=== PATIENT | male | born 1955 | race Caucasian/White ===

== ENCOUNTER 2016-11-12 07:12 | Inpatient (IN) | payer BC ==
[~2016-11-12] VITALS: Ht 180.3 cm; Wt 144.3 kg
[2016-11-12] MEDS ORDERED: IV NORMAL SALINE 1000ML BAG 1,000 ML IV SCH (07:31)
[2016-11-12] MEDS ORDERED: 0.9 % SODIUM CHLORIDE 10 ML DISP.SYRIN. IV PRN (07:45)
[2016-11-12] MEDS ORDERED: ASPIRIN CHEWABLE 81 MG TABLET. PO ONE (07:45)
--- NOTE | 2016-11-12 07:45 | PHYS DOC ---
Past Medical History Past Medical History: CAD, Diabetes-Type II, High Cholesterol, Hypertension, NC Past Surgical History: Other Additional Past Surgical Histo: CARDIAC STENT Smoking: Cigarettes, Cigar (on occasion), Quit Greater Than 1 Year Alcohol Use: None Drug Use: None Adult General Chief Complaint Chief Complaint: VISION PROBLEM HPI HPI This is a pleasant 61-year-old male with a history of hypertension, diabetes and prior heart disease with a heart attack back is age 42 return home from [place] after vacation for a week with his family. He went to bed in his normal state of health when he woke up this morning he distinctly had problems with visual field loss in the left hemisphere of his left eye only. He describes some floating changing shades that he can see in his eye with possibly scintillating scatomata. There is minimal pain he does have a slight headache around that I needed the jain. He denies any trauma to the eye denies any pain within the eye itself. There is no pain with extraocular movement or facial rash. Patient denies any recent weakness in his upper or lower extremities problems problems with hearing or memory. He's never had symptoms like this in the past. He used to wear contact lenses when he was younger but has grown out of the need and use of contact lenses. This patient denies photophobia, or problems with nausea and vomiting. homonymous hemianopia, temporal arteritis, retinal detachment, posterior vitreal detachment, vasculitis, central artery occlusion, central vein occlusion , glaucoma, Review of Systems Review of Systems Constitutional: Denies fever or chills [] Eyes: Patient only has change in visual acuity without redness or eye pain. HENT: Denies nasal congestion or sore throat [] Respiratory: Denies cough or shortness of breath [] Cardiovascular: No additional information not addressed in HPI [] GI: Denies abdominal pain, nausea, vomiting, bloody stools or diarrhea [] : Denies dysuria or hematuria [] Musculoskeletal: Denies back pain or joint pain [] Integument: Denies rash or skin lesions [] Neurologic: Denies headache, focal weakness or sensory changes [] Endocrine: Denies polyuria or polydipsia [] Current Medications Current Medications Current Medications Medications (Trade) Dose Ordered Sig/Wojciech Start Time Stop Time Status Last Admin Dose Admin Acetazolamide (Diamox) 500 mg 1X ONCE 11/12/16 10:30 11/12/16 10:31 DC Aspirin (Children'S Aspirin) 324 mg 1X ONCE 11/12/16 07:45 11/12/16 07:46 DC Fluorescein Sodium (Ful-[place]) 1 strip 1X ONCE 11/12/16 08:15 11/12/16 08:16 DC 11/12/16 08:22 1 STRIP Sodium Chloride (Normal Saline Flush) 10 ml QSHIFT PRN 11/12/16 07:45 11/12/16 08:23 10 ML Tetracaine HCl (Tetracaine) 1 drop 1X ONCE 11/12/16 08:15 11/12/16 08:16 DC 11/12/16 08:22 1 DROP Timolol Maleate (Timoptic 0.5% Oph) 1 drop BID 11/12/16 21:00 UNV Allergies Allergies Allergies Coded Allergies Type Severity Reaction Last Updated Verified No Known Drug Allergies 11/12/16 No Physical Exam Physical Exam Vital signs noted to be hypertensive. Constitutional: Well developed, well nourished, no acute distress, non-toxic appearance. [] HENT: Normocephalic, atraumatic, bilateral external ears normal, oropharynx moist, no oral exudates, nose normal. [] Eyes: Patient extraocular motions are intact bilaterally with no weakness. Patient has no facial rash, no Carbone sign, no facial anesthesia. Patient has consensual pupillary restriction when looking at the right eye. He does have pupillary dilation when the eye is allowed to be in the low light. He does have some activity but decreased in the left pupil. Patient on visual field confrontation has hemianopsia noted just on the left jain. The retina seems pale with mild nicking of the blood vessels. There is no obvious photophobia or injection to the limbic region of the conjunctiva. Patient's anterior chambers deep and quiet. He has no noted foreign bodies or extra watering from the eye itself. Neck: Normal range of motion, no tenderness, supple, no stridor. [] Cardiovascular:Heart rate regular rhythm, no murmur [] Lungs & Thorax: Bilateral breath sounds clear to auscultation [] Skin: Warm, dry, no erythema, no rash. [] Extremities: No tenderness, no cyanosis, no clubbing, ROM intact, no edema. [] Neurologic: Alert and oriented X 3, normal motor function, normal sensory function, no focal deficits noted. [] Psychologic: Affect normal, judgement normal, mood normal. [] Current Patient Data Vital Signs Vital Signs Date Time Temp Pulse Resp B/P (MAP) Pulse Ox O2 Delivery O2 Flow Rate FiO2 11/12/16 07:16 97.9 58 18 162/79 (106) 98 Room Air 97.9 Lab Values Laboratory Tests Test 11/12/16 07:35 White Blood Count 6.1 x10^3/uL (4.0-11.0) Red Blood Count 4.81 x10^6/uL (4.30-5.70) Hemoglobin 15.2 g/dL (13.0-17.5) Hematocrit 43.0 % (39.0-53.0) Mean Corpuscular Volume 89 fL (79-100) Mean Corpuscular Hemoglobin 32 pg (25-35) Mean Corpuscular Hemoglobin Concent 35 g/dL (31-37) Red Cell Distribution Width 15.0 % (11.5-14.5) H Platelet Count 132 x10^3/uL (140-400) L Neutrophils (%) (Auto) 56 % (31-73) Lymphocytes (%) (Auto) 31 % (24-48) Monocytes (%) (Auto) 9 % (0-9) Eosinophils (%) (Auto) 4 % (0-3) H Basophils (%) (Auto) 1 % (0-3) Neutrophils # (Auto) 3.4 x10^3uL (1.8-7.7) Lymphocytes # (Auto) 1.9 x10^3/uL (1.0-4.8) Monocytes # (Auto) 0.5 x10^3/uL (0.0-1.1) Eosinophils # (Auto) 0.2 x10^3/uL (0.0-0.7) Basophils # (Auto) 0.0 x10^3/uL (0.0-0.2) Erythrocyte Sedimentation Rate 22 (0-15) H Sodium Level 141 mmol/L (136-145) Potassium Level 4.3 mmol/L (3.5-5.1) Chloride Level 104 mmol/L (98-107) Carbon Dioxide Level 31 mmol/L (21-32) Anion Gap 6 (6-14) Blood Urea Nitrogen 19 mg/dL (8-26) Creatinine 1.0 mg/dL (0.7-1.3) Estimated GFR (Cockcroft-Gault) 76.2 Glucose Level 107 mg/dL (70-99) H Calcium Level 9.1 mg/dL (8.5-10.1) Total Bilirubin 0.4 mg/dL (0.2-1.0) Direct Bilirubin 0.1 mg/dL (0.0-0.2) Aspartate Amino Transferase (AST) 27 U/L (15-37) Alanine Aminotransferase (ALT) 28 U/L (16-63) Alkaline Phosphatase 87 U/L (46-116) C-Reactive Protein, Quantitative 7.4 mg/L (0-3.3) H Total Protein 7.3 g/dL (6.4-8.2) Albumin 3.5 g/dL (3.4-5.0) Laboratory Tests 11/12/16 07:35 Laboratory Tests 11/12/16 07:35 EKG EKG [] Radiology/Procedures Radiology/Procedures [] IMAGING REPORT Signed PATIENT: JUAN PITTMAN ACCOUNT: [id number] : 1955 LOCATION: ER AGE: 61 SEX: M EXAM STATUS: REG ER ORD. PHYSICIAN: JESUS RUVALCABA MD REASON: vision loss PROCEDURE: CT HEAD WO CONTRAST One or more of the following individualized dose reduction techniques were utilized for this examination: 1. Automated exposure control 2. Adjustment of the mA and/or kV according to patient size 3. Use of iterative reconstruction technique CT brain without contrast. History: Vision loss left eye this morning. CT scan of brain was done without contrast. There is no intracranial hemorrhage or subdural hematoma. Ventricles are normal in size. There is no mass effect or shift of the midline. There is a small rounded low density or cystic focus along the tentorium on the left is nonspecific. MRI could be of benefit for further evaluation. Sinuses are clear. Impression: 1. Small low-density focus along the tentorium nonspecific finding. 2. No intracranial hemorrhage or acute CVA noted. DICTATED and SIGNED BY: DAISY PERDUE MD DATE: 11/12/1635 CC: JESUS RUVALCABA MD; SAAD CUMMINS MD ~ Course & Med Decision Making Course & Med Decision Making Pertinent Labs and Imaging studies reviewed. (See chart for details) Hospitality Recruiter note: Ophthalmology services Hospitality Recruiter called at of the service was initially paged at 7:50 AM Consult called back at 8:06 AM Discussed the case I presented and they agreed with evaluation and need for emergent ophthalmology evaluation. He did agree that is possibly ischemic neuritis retinal detachment. I did tell him that I would set up is with the machine examination for him as well as a Hayden-Pen. My Hayden-Pen evaluation demonstrated an internal pressure between 14 and 18. Patient's foreign seen exam demonstrated no Oly's, no dendrites no evidence of foreign body rink sign or ulcer. At this point I discussed the treatment options and plan for ophthalmology evaluation here in the emergency department about 9:30 AM with the family. Time is now 820. Patient is still resting comfortably with no change in visual acuities. Time is now 9:15 patient's laboratory work as been reviewed by me. His CRP and ESR are mildly elevated. He does not have an elevated white blood cell count. Patient has a mild hyperglycemia with a rate of 132. His CT is also been reviewed by me and the reading is been done by radiology. I have shared this information with the family and the patient at the bedside. The patient's symptoms remain unchanged. Ophthalmology is at the bedside approximate 9:35 AM. After dilation and discussion at approximately 10:10 AM it was discovered that patient has a central artery or retinal occlusion. The symptoms began when he awoke about 6 AM this morning although could've occurred anytime the last 12 hours. Patient may benefit from ocular massage, ocular trephination of the orbit to reduce pressure. Patient will also have an echocardiogram completed, continued rule out giant cell arteritis, and EKG, and carotid Dopplers. He'll be admitted to the hospital to an inpatient service seen under the care of internal medicine physician and ophthalmology. Hospitality Recruiter note: Internal medicine services Hospitality Recruiter called at of the service consult the service at 10:15 AM Consult called back at 10:30 Discussed the case I presented and they agreed with admission. Time of acceptance 10:30 Impression: Central artery or retinal occlusion. Ocular stroke. Disposition. Admission to the hospital for continued evaluation for a systolic disease process. He will carotid ultrasound done, MRI of the head and neck, and echocardiogram. Ophthalmology has seen the patient agrees with treatment of atenolol to reduce pressure in the eye as well as Acetazolimide to reduce intraocular pressure even more through osmotic processes. I spent approximately 45-50 minutes working and engaged directly in the patient care providing critical care evaluation this includes but not limited to time spent engaged in work directly related to the individual patients care. I spent time at the bedside, reviewing test results, discussing the case with staff, documenting the medical record and time spent with EMS discussing specific treatment issues when the patient presented and during his evaluation. [] Dragon Disclaimer Dragon Disclaimer This electronic medical record was generated, in whole or in part, using a voice recognition dictation system. Departure Departure Impression: Primary Impression: Central retinal artery occlusion of left eye Disposition: ADMITTED INPATIENT Admitting Physician: Maya Concepcion Condition: GUARDED JESUS RUVALCABA MD Nov 12, 2016 07:45
[2016-11-12 07:55] LABS: CALCIUM 9.1 mg/dL (8.5-10.1); GFR 76.2; POTASSIUM 4.3 mmol/L (3.5-5.1)
[2016-11-12 08:01] LABS: ALBUMIN 3.5 g/dL (3.4-5.0); DIRECT BILIRUBIN 0.1 mg/dL (0.0-0.2); TOTAL BILIRUBIN 0.4 mg/dL (0.2-1.0); TOTAL PROTEIN 7.3 g/dL (6.4-8.2)
[2016-11-12 08:02] LABS: BASO % 1 % (0-3); EOS % 4 % (0-3); HEMOGLOBIN 15.2 g/dL (13.0-17.5); LYMPH # 1.9 x10^3/uL (1.0-4.8); LYMPH % 31 % (24-48); MEAN CORPUSCULAR HEMOGLOBIN 32 pg (25-35); MEAN CORPUSCULAR HGB CONC 35 g/dL (31-37); MEAN CORPUSCULAR VOLUME 89 fL (79-100); MONO % 9 % (0-9); NEUT % 56 % (31-73); PLATELET COUNT 132 x10^3/uL (140-400); RED BLOOD COUNT 4.81 x10^6/uL (4.30-5.70); WHITE BLOOD COUNT 6.1 x10^3/uL (4.0-11.0)
[2016-11-12 08:10] LABS: C-REACTIVE PROTEIN 7.4 mg/L (0-3.3)
[2016-11-12] MEDS ORDERED: TETRACAINE 0.5% OPHTH SOLUTION 4ML BOTTLE. OS ONE (08:15)
[2016-11-12] MEDS ORDERED: FLUORESCEIN OPHTH TEST STRIP. OS ONE (08:15)
--- NOTE | 2016-11-12 08:40 | RAD ---
One or more of the following individualized dose reduction techniques were utilized for this examination: 1. Automated exposure control 2. Adjustment of the mA and/or kV according to patient size 3. Use of iterative reconstruction technique CT brain without contrast. History: Vision loss left eye this morning. CT scan of brain was done without contrast. There is no intracranial hemorrhage or subdural hematoma. Ventricles are normal in size. There is no mass effect or shift of the midline. There is a small rounded low density or cystic focus along the tentorium on the left is nonspecific. MRI could be of benefit for further evaluation. Sinuses are clear. Impression: 1. Small low-density focus along the tentorium nonspecific finding. 2. No intracranial hemorrhage or acute CVA noted.
[2016-11-12] MEDS ORDERED: ONDANSETRON PF 4 MG/2 ML VIAL. IV PRN ×2 (10:45→12:20)
--- NOTE | 2016-11-12 11:09 | EKG ---
[facility] [address] [place] [address] Test Date: 2016-11-12 Test Time: 10:31:46 Pat Name: JUAN PITTMAN Department: Room: Gender: M [employer]: : 1955 Requested By: JESUS RUVALCABA Order Number: [id number] Reading MD: Measurements Intervals [place] Rate: 56 P: 45 CO: 242 QRS: -21 QRSD: 84 T: 9 QT: 388 QTc: 377 Interpretive Statements SINUS RHYTHM PROLONGED CO INTERVAL LEFTWARD AXIS RI6.01 Unconfirmed report No previous ECG available for comparison
[2016-11-12 11:10] VITALS: BP 138/65
[2016-11-12] MEDS: IV NORMAL SALINE 1000ML BAG 1,000 ML IV SCH ×2 (11:59→21:40)
[2016-11-12] MEDS ORDERED: GLIP10TA13 PO (12:09)
[2016-11-12] MEDS ORDERED: PIOG1TAB24 PO (12:09)
[2016-11-12] MEDS ORDERED: HYDR25TA9 PO (12:09)
[2016-11-12] MEDS ORDERED: INSU100C4 SQ (12:09)
[2016-11-12] MEDS ORDERED: METO50TA2 PO (12:09)
[2016-11-12] MEDS ORDERED: CRESTOR10 MG PO (12:09)
[2016-11-12] MEDS ORDERED: INSU100I27 SQ (12:09)
[2016-11-12] MEDS ORDERED: ASPI325T8 PO (12:09)
[2016-11-12] MEDS ORDERED: RAMI10CA PO (12:09)
[2016-11-12] MEDS ORDERED: OMEG1CAP6 PO (12:09)
[2016-11-12] MEDS ORDERED: cloNIDine HCL 0.1 MG TABLET PO PRN (12:30)
[2016-11-12] MEDS ORDERED: DEXTROSE 50% 25 GM / 50ML DISP.SYRIN. IV PRN (12:30)
[2016-11-12] MEDS: METOPROLOL TART IMMED RELEASE 50 MG TABLET. PO SCH ×2 (13:00→21:39)
[2016-11-12] MEDS: hydroCHLOROthiazide 25 MG TABLET PO SCH (13:00)
[2016-11-12] MEDS: OMEGA-3 FATTY ACIDS/FISH OIL 1,000 MG CAPSULE. PO SCH (13:00)
[2016-11-12] MEDS: ASPIRIN 325 MG TABLET PO SCH (13:19)
[2016-11-12 15:00] VITALS: BP 126/66
--- NOTE | 2016-11-12 15:06 | PDOC1 ---
History and Physical Date of Admission Date of Admission DATE: 11/12/16 TIME: 14:57 Identification/Chief Complaint Chief Complaint acute blurry vision, blindness of left eye Problems: Source Source: Caregiver, Chart review, Patient History of Present Illness History of Present Illness 61 y.o obese male, hx HTN DM 2 on high doses insulin and CAD with indwelling stent, woke up today with acute signif BOV, almost complete loss of vision of left eye, NEver happened before. Some mild headache, no emesis, no dizziness, Went to ER, evaluated by opthalmology stat, got timolol eye drops and diamox to dec Intra ocular pressure, dx witH CRAO, Admitted bec of further work up, to r.o cardio embolic source/cause of the retinal stroke. Pt sitting comfortably, BP and BS very good, no FNDs, NEuro exam Completely normal asks about an MRI I did explain this is a retinal stroke, no role of mRI but cardio embolic work up including carotid US and echo is the standard of care NOt unless new FNDs arrise, no MRI ESR mildy elevated at 22m, CRP 74 but no signs of temporal arteritis that can be seen sometimes with CRAO. GOt ASA 325 at ER, on ASA 325 at home. NO eye pain PE: R eye entirelyu normal LEft eye, cannot see hand wave test, not see finger counting test, only sees whatley dots/spots Past Medical History Cardiovascular: CAD, HTN, Hyperlipidemia Endocrine: Diabetes Past Surgical History Past Surgical History: Other (Stents cardiac), No pertinent history Family History Family History: High Cholestrol, Hypertension Social History Smoke: No ALCOHOL: none Drugs: None Current Problem List Problem List Problems Medical Problems: (1) Central retinal artery occlusion of left eye Status: Acute Problems: Current Medications Current Medications Current Medications Aspirin (Children'S Aspirin) 324 mg 1X ONCE PO ; Start 11/12/16 at 07:45; Stop 11/12/16 at 07:46; Status DC Sodium Chloride 1,000 ml @ 1,000 mls/hr Q1H IV Last administered on 11/12/16 08:24; Start 11/12/16 at 07:31; Stop 11/12/16 at 08:30; Status DC Sodium Chloride (Normal Saline Flush) 10 ml QSHIFT PRN IV AFTER MEDS AND BLOOD DRAWS Last administered on 11/12/16 08:23; Start 11/12/16 at 07:45 Fluorescein Sodium (Ful-[place]) 1 strip 1X ONCE OS Last administered on 08:22; Start 11/12/16 at 08:15; Stop 11/12/16 at 08:16; Status DC Tetracaine HCl (Tetracaine) 1 drop 1X ONCE OS Last administered on 11/12/16 08:22; Start 11/12/16 at 08:15; Stop 11/12/16 at 08:16; Status DC Timolol Maleate (Timoptic 0.5% Ophth) 1 drop BID OS ; Start 11/12/16 at 21:00 Acetazolamide (Diamox) 500 mg 1X ONCE PO Last administered on 11/12/16 11:04 ; Start 11/12/16 at 10:30; Stop 11/12/16 at 10:31; Status DC Ondansetron HCl (Zofran) 4 mg PRN Q8HRS PRN IV NAUSEA/VOMITING; Start 11/12/16 at 10:45; Stop 11/12/16 at 12:22; Status DC Sodium Chloride 1,000 ml @ 100 mls/hr Q10H IV Last administered on 11/12/16 11:59; Start 11/12/16 at 10:43; Stop 11/13/16 at 10:42 Ondansetron HCl (Zofran) 4 mg PRN Q6HRS PRN IV NAUSEA/VOMITING; Start 11/12/16 at 12:20; Stop 11/13/16 at 12:19 Insulin Aspart (NovoLOG) 0-9 UNITS TIDWMEALS SQ ; Start 11/12/16 at 17:00 Dextrose (Dextrose 50%-Water Syringe) 12.5 gm PRN Q15MIN PRN IV SEE COMMENTS; Start 11/12/16 at 12:30 Aspirin (Uma Aspirin) 325 mg DAILY PO ; Start 11/12/16 at 13:00 Hydrochlorothiazide (Hydrodiuril) 25 mg DAILY PO ; Start 11/12/16 at 13:00 Insulin Detemir (Levemir) 80 units HS SQ ; Start 11/12/16 at 21:00 Metoprolol Tartrate (Lopressor) 50 mg BID PO ; Start 11/12/16 at 13:00 Fish Oil (Fish Oil) 1,000 mg DAILY PO ; Start 11/12/16 at 13:00 Glipizide (Glucotrol) 10 mg BIDBFRMEAL PO ; Start 11/12/16 at 16:30 Insulin Aspart (NovoLOG) 12 units TIDAC SQ ; Start 11/12/16 at 16:30 Pioglitazone HCl (Actos) 15 mg BIDWMEALS PO ; Start 11/12/16 at 17:00 Lisinopril (Prinivil) 20 mg BID PO ; Start 11/13/16 at 09:00 Atorvastatin Calcium (Lipitor) 40 mg QHS PO ; Start 11/12/16 at 21:00 Clonidine HCl (Catapres) 0.1 mg PRN Q1HR PRN PO HYPERTENSION, SEE COMMENTS; Start 11/12/16 at 12:30 Metformin HCl (Glucophage) 850 mg BIDWMEALS PO ; Start 11/12/16 at 17:00 Active Scripts Active Reported Aspirin 325 Mg Tablet 1 Tab PO DAILY Fish Oil 1,000 Mg Capsule ([place]-3 Fatty Acids/Fish Oil) 1 Each Capsule 3 Each PO DAILY Novolog (Insulin Aspart) 100 Unit/1 Ml Cartridge 12 Unit SQ TID Levemir Flextouch (Insulin Detemir) 100 Unit/1 Ml Insuln.pen 80 Unit SQ HS Ramipril 10 Mg Capsule 10 Mg PO BID Crestor (Rosuvastatin Calcium) 10 Mg Tablet 10 Mg PO HS Metoprolol Tartrate 50 Mg Tablet 1 Tab PO BID Hydrochlorothiazide Tablet (Hydrochlorothiazide) 25 Mg Tablet 25 Mg PO DAILY Glipizide 10 Mg Tablet 1 Tab PO BID Actoplus Met 15 Mg-850 Mg Tab (Pioglitazone Hcl/Metformin Hcl) 1 Each Tablet 1 Tab PO BID Allergies Allergies: Coded Allergies: No Known Drug Allergies (Unverified , 11/12/16) ROS General: No: Chills, Night Sweats, Fatigue, Malaise, Appetite, Other PSYCHOLOGICAL ROS: No: Anxiety, Behavioral Disorder, Concentration difficultie , Decreased libido, Depression, Disorientation, Hallucinations, Hostility, Irritablity, Memory difficulties, Mood Swings, Obsessive thoughts, Physical abuse, Sexual abuse, Sleep disturbances, Suicidal ideation, Other Eyes: Yes Blurry vision, Yes Decreased vision HEENT: No: Heacaches, Visual Changes, Hearing change, Nasal congestion, Nasal discharge, Oral lesions, Sinus pain, Sore Throat, Epistaxis, Sneezing, Snoring, Tinnitus, Vertigo, Vocal changes, Other ALLERGY AND IMMUNOLOGY: No: Hives, Insect Bite Sensitivity, Itchy/Watery Eyes, Nasal Congestion, Post Nasal Drip, Seasonal Allergies, Other Hematological and Lymphatic: No: Bleeding Problems, Blood Clots, Blood Transfusions, Brusing, Night Sweats, Pallor, Swollen Lymph Nodes, Other ENDOCRINE: No: Breast Changes, Galactorrhea, Hair Pattern Changes, Hot Flashes , Malaise/lethargy, Mood Swings, Palpitations, Polydipsia/polyuria, Skin Changes , Temperature Intolerance, Unexpected Weight Changes, Other Breast: No New/Changing Breast Lumps, No Nipple changes, No Nipple discharge, No Other Respiratory: No: Cough, Hemoptysis, Orthopnea, Pleuritic Pain, Shortness of breath, SOB with excertion, Sputum Changes, Stridor, Tachypnea, Wheezing, Other Cardiovascular: No Chest Pain, No Palpitations, No Orthopnea, No Paroxysmal Noc. Dyspnea, No Edema, No Lt Headedness, No Other Gastrointestinal: No Nausea, No Vomiting, No Abdominal Pain, No Diarrhea, No Constipation, No Melena, No Hematochezia, No Other Genitourinary: No Dysuria, No Frequency, No Incontinence, No Hematuria, No Retention, No Discharge, No Urgency, No Pain, No Flank Pain, No Other, No , No , No , No , No , No , No Musculoskeletal: No Gait Disturbance, No Joint Pain, No Joint Stiffness, No Joint Swelling, No Muscle Pain, No Muscular Weakness, No Pain In:, No Swelling In:, No Other Neurological: No Behavorial Changes, No Bowel/Bladder ControlChng, No Confusion , No Dizziness, No Gait Disturbance, No Headaches, No Impaired Coord/balance, No Memory Loss, No Numbness/Tingling, No Seizures, No Speech Problems, No Tremors, No Visual Changes, No Weakness, No Other Skin: No Dry Skin, No Eczema, No Hair Changes, No Lumps, No Mole Changes, No Mottling, No Nail Changes, No Pruritus, No Rash, No Skin Lesion Changes, No Other, No Acne Physical Exam General: Alert, Oriented X3, Cooperative, No acute distress HEENT: Atraumatic, Mucous membr. moist/pink, Other (R eye normal, (normal finger countring test, normal EOMS). left eye remarkable for no vision to hand wave, just sees whatley dots) Lungs: Clear to auscultation Heart: S1S2, RRR, no thrills, no rubs, no gallops, no murmurs Cardiovascular: S1, S2 Breasts: Normal, Rt breast nml w/o mass, Lt breast nml w/o mass, Nipples normal Abdomen: Normal bowel sounds, Soft, No tenderness, No hepatosplenomegaly, No masses Male Genitals Exam: normal genitalia, normal prostate Rectal Exam: not examined PELVIC: Nml ext genitalia Extremities: No clubbing, No cyanosis, No edema, Normal pulses, No tenderness/ swelling Skin: No rashes, No breakdown, No significant lesion Neuro: Normal gait, Normal speech, Strength at 5/5 X4 ext, Normal tone, Sensation intact, Cranial nerves 3-12 NL, Reflexes 2+ Psych/Mental Status: Mental status NL, Mood NL Vitals Vitals Vital Signs Date Time Temp Pulse Resp B/P (MAP) Pulse Ox O2 Delivery O2 Flow Rate FiO2 11/12/16 11:10 97.5 54 20 138/65 (89) 98 Room Air 97.5 Labs Labs Laboratory Tests Test 11/12/16 07:35 11/12/16 11:17 White Blood Count 6.1 x10^3/uL (4.0-11.0) Red Blood Count 4.81 x10^6/uL (4.30-5.70) Hemoglobin 15.2 g/dL (13.0-17.5) Hematocrit 43.0 % (39.0-53.0) Mean Corpuscular Volume 89 fL (79-100) Mean Corpuscular Hemoglobin 32 pg (25-35) Mean Corpuscular Hemoglobin Concent 35 g/dL (31-37) Red Cell Distribution Width 15.0 % (11.5-14.5) Platelet Count 132 x10^3/uL (140-400) Neutrophils (%) (Auto) 56 % (31-73) Lymphocytes (%) (Auto) 31 % (24-48) Monocytes (%) (Auto) 9 % (0-9) Eosinophils (%) (Auto) 4 % (0-3) Basophils (%) (Auto) 1 % (0-3) Neutrophils # (Auto) 3.4 x10^3uL (1.8-7.7) Lymphocytes # (Auto) 1.9 x10^3/uL (1.0-4.8) Monocytes # (Auto) 0.5 x10^3/uL (0.0-1.1) Eosinophils # (Auto) 0.2 x10^3/uL (0.0-0.7) Basophils # (Auto) 0.0 x10^3/uL (0.0-0.2) Erythrocyte Sedimentation Rate 22 (0-15) Sodium Level 141 mmol/L (136-145) Potassium Level 4.3 mmol/L (3.5-5.1) Chloride Level 104 mmol/L (98-107) Carbon Dioxide Level 31 mmol/L (21-32) Anion Gap 6 (6-14) Blood Urea Nitrogen 19 mg/dL (8-26) Creatinine 1.0 mg/dL (0.7-1.3) Estimated GFR (Cockcroft-Gault) 76.2 Glucose Level 107 mg/dL (70-99) Calcium Level 9.1 mg/dL (8.5-10.1) Total Bilirubin 0.4 mg/dL (0.2-1.0) Direct Bilirubin 0.1 mg/dL (0.0-0.2) Aspartate Amino Transf (AST/SGOT) 27 U/L (15-37) Alanine Aminotransferase (ALT/SGPT) 28 U/L (16-63) Alkaline Phosphatase 87 U/L (46-116) C-Reactive Protein, Quantitative 7.4 mg/L (0-3.3) Total Protein 7.3 g/dL (6.4-8.2) Albumin 3.5 g/dL (3.4-5.0) Glucose (Fingerstick) 115 mg/dL (70-99) Laboratory Tests Test 11/12/16 07:35 11/12/16 11:17 White Blood Count 6.1 x10^3/uL (4.0-11.0) Red Blood Count 4.81 x10^6/uL (4.30-5.70) Hemoglobin 15.2 g/dL (13.0-17.5) Hematocrit 43.0 % (39.0-53.0) Mean Corpuscular Volume 89 fL (79-100) Mean Corpuscular Hemoglobin 32 pg (25-35) Mean Corpuscular Hemoglobin Concent 35 g/dL (31-37) Red Cell Distribution Width 15.0 % (11.5-14.5) Platelet Count 132 x10^3/uL (140-400) Neutrophils (%) (Auto) 56 % (31-73) Lymphocytes (%) (Auto) 31 % (24-48) Monocytes (%) (Auto) 9 % (0-9) Eosinophils (%) (Auto) 4 % (0-3) Basophils (%) (Auto) 1 % (0-3) Neutrophils # (Auto) 3.4 x10^3uL (1.8-7.7) Lymphocytes # (Auto) 1.9 x10^3/uL (1.0-4.8) Monocytes # (Auto) 0.5 x10^3/uL (0.0-1.1) Eosinophils # (Auto) 0.2 x10^3/uL (0.0-0.7) Basophils # (Auto) 0.0 x10^3/uL (0.0-0.2) Erythrocyte Sedimentation Rate 22 (0-15) Sodium Level 141 mmol/L (136-145) Potassium Level 4.3 mmol/L (3.5-5.1) Chloride Level 104 mmol/L (98-107) Carbon Dioxide Level 31 mmol/L (21-32) Anion Gap 6 (6-14) Blood Urea Nitrogen 19 mg/dL (8-26) Creatinine 1.0 mg/dL (0.7-1.3) Estimated GFR (Cockcroft-Gault) 76.2 Glucose Level 107 mg/dL (70-99) Calcium Level 9.1 mg/dL (8.5-10.1) Total Bilirubin 0.4 mg/dL (0.2-1.0) Direct Bilirubin 0.1 mg/dL (0.0-0.2) Aspartate Amino Transf (AST/SGOT) 27 U/L (15-37) Alanine Aminotransferase (ALT/SGPT) 28 U/L (16-63) Alkaline Phosphatase 87 U/L (46-116) C-Reactive Protein, Quantitative 7.4 mg/L (0-3.3) Total Protein 7.3 g/dL (6.4-8.2) Albumin 3.5 g/dL (3.4-5.0) Glucose (Fingerstick) 115 mg/dL (70-99) VTE Prophylaxis Ordered VTE Prophylaxis Devices: Yes VTE Pharmacological Prophylaxi: Yes Assessment/Plan Assessment/Plan 1. CRAO, OS 2. HTN, DM 2 on high doses insulin - chronc stable 3. Obesity 4. CAD with indwelling stents PLAn: Stat optha consult which was done at ER since this is an ocular emergency Did get timolol and diamox to lower Intra ocular pressure if at all present Cont ASA 325 NO role of MRI brain and neuro NEed to work up for cardioembolic stroke if echo and carotid US IF both are neg, dc home hellen with 1 week ff up ophtha NEuro checks while in house MRI if any new FNDs All these discussed in detail with pt and family members and RN VANESSA MENDEZ MD Nov 12, 2016 15:06
--- NOTE | 2016-11-12 16:01 | RAD ---
Duplex ultrasound carotid arteries. History: Left eye vision loss Duplex ultrasound was used to evaluate the carotid arteries. Real-time imaging, color flow imaging and spectral Doppler with a velocity determinations were utilized for evaluation. There is mild intimal thickening at the carotid bifurcation on each side slight plaque formation but without significant stenosis on either side. Peak velocity in the internal carotid artery on the right side was 125 cm/s with a systolic velocity of 1.3. End diastolic velocity in the right internal carotid artery was 34 cm/s. Peak velocity in the left internal carotid artery was 90 cm/s with a systolic velocity index of 0.8. There is antegrade flow in each vertebral. Impression: 1. Mild intimal thickening and plaque at the carotid bifurcations without significant stenosis. 2. Antegrade flow noted in each vertebral artery. Note: Stenosis calculations for Doppler studies are derived from validated velocity criteria which are known to correlate with NASCET methodology of determining stenosis.
[2016-11-12] MEDS: INSULIN ASPART 300 UNITS/3 ML INSULN.PEN SQ SCH ×2 (16:44→16:49)
[2016-11-12] MEDS: PIOGLITAZONE 15 MG TABLET. PO SCH (16:45)
[2016-11-12] MEDS: metFORMIN 850 MG TABLET PO SCH (16:45)
[2016-11-12] MEDS: glipiZIDE 5 MG TABLET PO SCH (16:45)
[2016-11-12 19:05] VITALS: BP 135/53
[2016-11-12] MEDS ORDERED: ATORVASTATIN CALCIUM 40 MG TABLET. PO SCH (21:00)
[2016-11-12] MEDS ORDERED: INSULIN DETEMIR 300 UNITS/3 ML INSULN.PEN. SQ SCH (21:00)
[2016-11-12] MEDS: TIMOLOL 0.5% OPHTH SOLUTION 5ML BOTTLE. OS SCH (21:40)
[2016-11-12 22:48] VITALS: BP 152/60
--- NOTE | 2016-11-13 02:09 | ACF ---
Admit Criteria Forms Admit Criteria Forms Admit Criteria Forms HEAD AND NECK DISEASE GRG Clinical Indications for Admission to Inpatient Care ( Place 'X' for any and all applicable criteria): Hospital admission is needed for appropriate care of the patient because of ANY ONE of the following (1)(2): [ ]I. Severe sinusitis as indicated by ANY ONE of the following (6)(13)(21) [ ]a) Suspected MUSIC CRITIC infection [ ]b) Bacteremia [ ]c) Hemodynamic instability [ ]d) Outpatient and observation care antibiotic treatment have failed or are not considered appropriate [ ]e) Surgical drainage needed that cannot be performed on an outpatient basis or observation. setting [ ]f) Suspected orbital involvement [ ]II. Acute glaucoma unresponsive to emergency treatment that requires medication or other treatment beyond the scope of observation care (1) [ ]III. Severe eye infection or inflammation (eg, uveitis) which is unresponsive to emergency treatment and requires medication or other treatment beyond the scope of observation care (1)(2)(3)(4) [ ]IV. Severe epistaxis requiring posterior packing (5)(6) [ ]V. Acute bacterial labyrinthitis(6)(7) [ ]. Viral labyrinthitis with symptoms uncontrollable on an outpatient or observation care basis (6)(7) [ ]VII. Severe necrotizing external otitis unresponsive to outpatient and observation care treatment(6) [ ]VIII. Otitis media requiring treatment beyond the scope of outpatient and observation care, as indicated by presence or persistence of ANY ONE of the following(6)(8)(9): [ ]a) Hemodynamic instability [ ]b) Mastoiditis [ ]c) Suspected MUSIC CRITIC infection [ ]d) Bacteremia [ ]e) Surgical drainage needed that cannot be performed as an outpatient. or in an observation setting. [ ]IX. Epiglottitis or supraglottitis(6)(11)(12)(13)(14) [ ]X. Stridor or laryngospasm (unresponsive to emergency management) (6)(11)( 12)(13)(14) [ ]XI. Acute pharyngitis or tonsillitis and ANY ONE of the following (14)(15)( 16): [ ]a) Hemodynamic instability remaining after emergency or observation level care (as appropriate) [ ]b) Surgical drainage needed that cannot be performed in outpatient or observation setting [ ]c) Mediastinitis [ ]d) Thrombophlebitis of internal jugular vein (Lemierre syndrome) [ ]XII. Sialoadenitis and ANY ONE of the following (17) (18) [ ]a) Hemodynamic instability remaining after emergency or observation level care(as appropriate) [ ]b) Surgical drainage needed that cannot be performed in outpatient or observation setting [ ]XIII. Airway blockage or inability to swallow (6)(12)(19)(20) [ ]XIV.Complicated infection indicated by ANY ONE of the following(6)(13)(21)(22 ): [ ]a) Abscess or swelling causing airway difficulty(12) [ ]b) Bacteremia [ ]c) Hemodynamic instability [ ]d) Suspected MUSIC CRITIC infection [ ]e) Outpatient and observation care antibiotic treatment have failed or are not considered appropriate [ ]f) Surgical drainage needed that cannot be performed on an outpatient basis or observation setting [ ]g) Other management need that cannot be performed in outpatient or observation setting: [ ]XV. Severe trauma requiring inpatient medical treatment of eye, head, pharynx, or airway (1)(23)(24)25)116) [ ]XVI. Ischemic optic neuropathy(11) [X ]XVII.Head or Neck Disease condition and ANY ONE of the following: [ X]a) Symptom or finding for which emergency and observation care have failed or are not considered appropriate (Also use General Criteria: Observation Care as appropriate) [ ]b) Presence of ANY ONE of the following: [ ]i) A General Admission Criteria [ ]ii) A Pediatric General Admission Criteria The original [facility] content created by [facility] [employer] has been revised. The portions of the content which have been revised are identified through the use of italic text or in bold, and [facility] has neither reviewed nor approved the modified material. All other unmodified content is copyright [facility]. Please see references footnoted in the original [facility] edition 2016 DREW HUTCHINS Nov 13, 2016 02:09
[2016-11-13 03:03] VITALS: BP 138/53
[2016-11-13] MEDS: IV NORMAL SALINE 1000ML BAG 1,000 ML IV SCH (06:34)
[2016-11-13 07:10] VITALS: BP 125/58
[2016-11-13] MEDS: hydroCHLOROthiazide 25 MG TABLET PO SCH (08:33)
[2016-11-13] MEDS: METOPROLOL TART IMMED RELEASE 50 MG TABLET. PO SCH (08:33)
[2016-11-13] MEDS: glipiZIDE 5 MG TABLET PO SCH (08:33)
[2016-11-13] MEDS: PIOGLITAZONE 15 MG TABLET. PO SCH (08:33)
[2016-11-13] MEDS: OMEGA-3 FATTY ACIDS/FISH OIL 1,000 MG CAPSULE. PO SCH (08:33)
[2016-11-13] MEDS: metFORMIN 850 MG TABLET PO SCH (08:34)
[2016-11-13] MEDS: TIMOLOL 0.5% OPHTH SOLUTION 5ML BOTTLE. OS SCH (08:34)
[2016-11-13] MEDS: ASPIRIN 325 MG TABLET PO SCH (08:34)
[2016-11-13] MEDS: INSULIN ASPART 300 UNITS/3 ML INSULN.PEN SQ SCH ×4 (08:39→12:04)
[2016-11-13] MEDS ORDERED: LISINOPRIL 20 MG TABLET PO SCH (09:00)
--- NOTE | 2016-11-13 10:18 | CARD ---
APPROVED REPORT EXAM: Two-dimensional and M-mode echocardiogram with Doppler and color Doppler. Other Information Quality : Average Rhythm : NSR INDICATION CVA/TIA Central retinal artery occlusion Echo Enhancing Agent Indication: Rule Out Septal Defect Agent/Amount Used: Agitated Saline 8mL 2D DIMENSIONS RVDd3.6 (2.9-3.5cm)Left Atrium(2D)4.6 (1.6-4.0cm) IVSd1.0 (0.7-1.1cm)Aortic Root(2D)3.2 (2.0-3.7cm) LVDd6.3 (3.9-5.9cm)LVOT Diameter2.0 (1.8-2.4cm) PWd1.0 (0.7-1.1cm)LVDs3.6 (2.5-4.0cm) FS (%) 22.0 %SV143.0 ml LVEF(%)52.0 (>50%) Aortic Valve AoV Peak Oskar.127.9cm/sAoV VTI25.6cm AO Peak GR.6.5mmHgLVOT Peak Oskar.85.7cm/s LVOT VTI 20.31cmAO Mean GR.3mmHg KASIA (VMAX)2.45kf5NVP (VTI)2.61cm2 Mitral Valve MV E Npdxldgb96.6cm/sMV DECEL [id number] MV A Prhtbexc58.4cm/sMV [id number] E/A Ratio1.2MV A [id number] MVA (PHT)3.52cm2 TDI E/Lateral E'9.8E/Medial E'9.4 Pulmonary Valve PV Peak Riyesird11.1cm/sPV Peak Grad.2mmHg RVOT VTI18.7cm Tricuspid Valve TR P. [id number]/sRAP [id number] TR Peak Gr.17mtSyBGKP29kdEv Pulmonary Vein S1 Odwfevmu22.7cm/sD2 Jpefctbr44.4cm/s LEFT VENTRICLE The Left Ventricle is mildly dilated. There is normal left ventricular wall thickness. Left ventricle systolic function is normal. The Ejection Fraction is 55%. There is normal LV segmental wall motion. The left ventricular diastolic function and filling is normal for age. There is no ventricular septa l defect visualized. RIGHT VENTRICLE The right ventricle is normal size. The right ventricular systolic function is normal. ATRIA The left atrium is mildly dilated. The right atrium size is normal. The interatrial septum is intact with no evidence for an atrial septal defect or patent foramen ovale as noted on 2-D or Doppler imagi ng. Injection of bubbles documented no interatrial shunt. AORTIC VALVE The aortic valve is mildly calcified. The aortic valve is trileaflet. Doppler and Color Flow revealed no significant aortic regurgitation. There is no significant aortic valvular stenosis. MITRAL VALVE Mitral annular calcification is mild. There is no mitral valve stenosis. Doppler and Color Flow revea led mild mitral regurgitation. TRICUSPID VALVE The tricuspid valve is normal in structure and function. Doppler and Color Flow revealed trace tricus pid regurgitation. The PA pressure was estimated at 14 mmHg. There is no tricuspid valve stenosis. PULMONIC VALVE The pulmonic valve is not well visualized. Doppler and Color Flow revealed no pulmonic valvular regur gitation. There is no pulmonic valvular stenosis. GREAT VESSELS The aortic root is normal in size. The ascending aorta is normal in size. Normal pulmonary venous fiorella w (Doppler). The IVC is normal in size and collapses >50% with inspiration. PERICARDIAL EFFUSION There is no evidence of significant pericardial effusion. Critical Notification Critical Value: No <Conclusion> Left ventricle systolic function is normal. The Ejection Fraction is 55%. The left atrium is mildly dilated. Mild mitral regurgitation. Trace tricuspid regurgitation. There is no evidence of significant pericardial effusion. Injection of bubbles documented no interatrial shunt.
--- NOTE | 2016-11-13 11:10 | PDOC ---
PROGRESS NOTES Chief Complaint Chief Complaint 1. Central Artery Retinal Occlusion 2. HTN 3. DM type 2 4. CAD with hx of stent 5. HLP History of Present Illness History of Present Illness pt is resting comfortably in bed with at bedside, he continues to have no vision in R eye but R EOM are intact when left eye open, discussed prognosis with optho yesterday, US carotid and echo normal so probable DC today and f/u optho in a week Vitals Vitals Vital Signs Date Time Temp Pulse Resp B/P (MAP) Pulse Ox O2 Delivery O2 Flow Rate FiO2 11/13/16 08:34 60 125/58 11/13/16 07:45 Room Air 11/13/16 07:10 97.7 18 96 97.7 Physical Exam General: Alert, Oriented X3, Cooperative, No acute distress Heart: Regular rate, No murmurs Lungs: Clear Abdomen: Normal bowel sounds, Soft, No tenderness, No hepatosplenomegaly, No masses Extremities: No clubbing, No cyanosis, No edema, Normal pulses, No tenderness/ swelling Skin: No rashes, No breakdown, No significant lesion Labs LABS Laboratory Tests Test 11/12/16 11:17 11/12/16 16:39 11/12/16 20:47 11/12/16 21:34 Glucose (Fingerstick) 115 mg/dL (70-99) 115 mg/dL (70-99) 68 mg/dL (70-99) 89 mg/dL (70-99) Test 11/13/16 07:03 Glucose (Fingerstick) 171 mg/dL (70-99) Review of Systems Review of Systems denies N/V/D and RAMIREZ Complete R visual field loss Assessment and Plan Assessmemt and Plan Assessment 1. Central Artery Retinal Occlusion 2. HTN 3. DM type 2 4. CAD with hx of stent 5. HLP Plan 1. Start timolol drops, continue outpt 2. Echo showed EF 50-55% 3. Carotid US showed mild atherosclerosis 4. f/u optho outpt in a week 5. Appreciate optho subspecialty input 6. Continue home meds 7. PT/OT 8. Probable discharge today as echo and carotid US normal Problems: Comment Review of Relevant I have reviewed the following items mary (where applicable) has been applied. Labs Laboratory Tests Test 11/12/16 07:35 11/12/16 11:17 11/12/16 16:39 11/12/16 20:47 White Blood Count 6.1 x10^3/uL (4.0-11.0) Red Blood Count 4.81 x10^6/uL (4.30-5.70) Hemoglobin 15.2 g/dL (13.0-17.5) Hematocrit 43.0 % (39.0-53.0) Mean Corpuscular Volume 89 fL (79-100) Mean Corpuscular Hemoglobin 32 pg (25-35) Mean Corpuscular Hemoglobin Concent 35 g/dL (31-37) Red Cell Distribution Width 15.0 % (11.5-14.5) Platelet Count 132 x10^3/uL (140-400) Neutrophils (%) (Auto) 56 % (31-73) Lymphocytes (%) (Auto) 31 % (24-48) Monocytes (%) (Auto) 9 % (0-9) Eosinophils (%) (Auto) 4 % (0-3) Basophils (%) (Auto) 1 % (0-3) Neutrophils # (Auto) 3.4 x10^3uL (1.8-7.7) Lymphocytes # (Auto) 1.9 x10^3/uL (1.0-4.8) Monocytes # (Auto) 0.5 x10^3/uL (0.0-1.1) Eosinophils # (Auto) 0.2 x10^3/uL (0.0-0.7) Basophils # (Auto) 0.0 x10^3/uL (0.0-0.2) Erythrocyte Sedimentation Rate 22 (0-15) Sodium Level 141 mmol/L (136-145) Potassium Level 4.3 mmol/L (3.5-5.1) Chloride Level 104 mmol/L (98-107) Carbon Dioxide Level 31 mmol/L (21-32) Anion Gap 6 (6-14) Blood Urea Nitrogen 19 mg/dL (8-26) Creatinine 1.0 mg/dL (0.7-1.3) Estimated GFR (Cockcroft-Gault) 76.2 Glucose Level 107 mg/dL (70-99) Calcium Level 9.1 mg/dL (8.5-10.1) Total Bilirubin 0.4 mg/dL (0.2-1.0) Direct Bilirubin 0.1 mg/dL (0.0-0.2) Aspartate Amino Transf (AST/SGOT) 27 U/L (15-37) Alanine Aminotransferase (ALT/SGPT) 28 U/L (16-63) Alkaline Phosphatase 87 U/L (46-116) C-Reactive Protein, Quantitative 7.4 mg/L (0-3.3) Total Protein 7.3 g/dL (6.4-8.2) Albumin 3.5 g/dL (3.4-5.0) Glucose (Fingerstick) 115 mg/dL (70-99) 115 mg/dL (70-99) 68 mg/dL (70-99) Test 11/12/16 21:34 11/13/16 07:03 Glucose (Fingerstick) 89 mg/dL (70-99) 171 mg/dL (70-99) Laboratory Tests Test 11/12/16 11:17 11/12/16 16:39 11/12/16 20:47 11/12/16 21:34 Glucose (Fingerstick) 115 mg/dL (70-99) 115 mg/dL (70-99) 68 mg/dL (70-99) 89 mg/dL (70-99) Test 11/13/16 07:03 Glucose (Fingerstick) 171 mg/dL (70-99) Medications Current Medications Aspirin (Children'S Aspirin) 324 mg 1X ONCE PO ; Start 11/12/16 at 07:45; Stop 11/12/16 at 07:46; Status DC Sodium Chloride 1,000 ml @ 1,000 mls/hr Q1H IV Last administered on 11/12/16 08:24; Start 11/12/16 at 07:31; Stop 11/12/16 at 08:30; Status DC Sodium Chloride (Normal Saline Flush) 10 ml QSHIFT PRN IV AFTER MEDS AND BLOOD DRAWS Last administered on 11/12/16 08:23; Start 11/12/16 at 07:45 Fluorescein Sodium (Ful-[place]) 1 strip 1X ONCE OS Last administered on 08:22; Start 11/12/16 at 08:15; Stop 11/12/16 at 08:16; Status DC Tetracaine HCl (Tetracaine) 1 drop 1X ONCE OS Last administered on 11/12/16 08:22; Start 11/12/16 at 08:15; Stop 11/12/16 at 08:16; Status DC Timolol Maleate (Timoptic 0.5% Oph) 1 drop BID OS Last administered on 08:34; Start 11/12/16 at 21:00 Acetazolamide (Diamox) 500 mg 1X ONCE PO Last administered on 11/12/16 11:04 ; Start 11/12/16 at 10:30; Stop 11/12/16 at 10:31; Status DC Ondansetron HCl (Zofran) 4 mg PRN Q8HRS PRN IV NAUSEA/VOMITING; Start 11/12/16 at 10:45; Stop 11/12/16 at 12:22; Status DC Sodium Chloride 1,000 ml @ 100 mls/hr Q10H IV Last administered on 11/13/16 06:34; Start 11/12/16 at 10:43; Stop 11/13/16 at 10:42; Status DC Ondansetron HCl (Zofran) 4 mg PRN Q6HRS PRN IV NAUSEA/VOMITING; Start 11/12/16 at 12:20; Stop 11/13/16 at 12:19 Insulin Aspart (NovoLOG) 0-9 UNITS TIDWMEALS SQ ; Start 11/12/16 at 17:00 Dextrose (Dextrose 50%-Water Syringe) 12.5 gm PRN Q15MIN PRN IV SEE COMMENTS; Start 11/12/16 at 12:30 Aspirin (Uma Aspirin) 325 mg DAILY PO Last administered on 11/13/16 08:34; Start 11/12/16 at 13:00 Hydrochlorothiazide (Hydrodiuril) 25 mg DAILY PO Last administered on 08:33; Start 11/12/16 at 13:00 Insulin Detemir (Levemir) 80 units HS SQ ; Start 11/12/16 at 21:00 Metoprolol Tartrate (Lopressor) 50 mg BID PO Last administered on 11/13/16 08: 33; Start 11/12/16 at 13:00 Fish Oil (Fish Oil) 1,000 mg DAILY PO Last administered on 11/13/16 08:33; Start 11/12/16 at 13:00 Glipizide (Glucotrol) 10 mg BIDBFRMEAL PO Last administered on 11/13/16 08:33 ; Start 11/12/16 at 16:30 Insulin Aspart (NovoLOG) 12 units TIDAC SQ Last administered on 11/13/16 08:39 ; Start 11/12/16 at 16:30 Pioglitazone HCl (Actos) 15 mg BIDWMEALS PO Last administered on 11/13/16 08: 33; Start 11/12/16 at 17:00 Lisinopril (Prinivil) 20 mg BID PO Last administered on 11/13/16 08:34; Start 11/13/16 at 09:00 Atorvastatin Calcium (Lipitor) 40 mg QHS PO Last administered on 11/12/16 21: 38; Start 11/12/16 at 21:00 Clonidine HCl (Catapres) 0.1 mg PRN Q1HR PRN PO HYPERTENSION, SEE COMMENTS; Start 11/12/16 at 12:30 Metformin HCl (Glucophage) 850 mg BIDWMEALS PO Last administered on 11/13/16 08:34; Start 11/12/16 at 17:00 Active Scripts Active Reported Aspirin 325 Mg Tablet 1 Tab PO DAILY Fish Oil 1,000 Mg Capsule ([place]-3 Fatty Acids/Fish Oil) 1 Each Capsule 3 Each PO DAILY Novolog (Insulin Aspart) 100 Unit/1 Ml Cartridge 12 Unit SQ TID Levemir Flextouch (Insulin Detemir) 100 Unit/1 Ml Insuln.pen 80 Unit SQ HS Ramipril 10 Mg Capsule 10 Mg PO BID Crestor (Rosuvastatin Calcium) 10 Mg Tablet 10 Mg PO HS Metoprolol Tartrate 50 Mg Tablet 1 Tab PO BID Hydrochlorothiazide Tablet (Hydrochlorothiazide) 25 Mg Tablet 25 Mg PO DAILY Glipizide 10 Mg Tablet 1 Tab PO BID Actoplus Met 15 Mg-850 Mg Tab (Pioglitazone Hcl/Metformin Hcl) 1 Each Tablet 1 Tab PO BID Vitals/I & O Vital Sign - Last 24 Hours 11/12/16 11/12/16 11/12/16 11/12/16 11:10 11:10 11:40 15:00 Temp 97.5 97.5 97.7 97.5 97.5 97.7 Pulse 54 54 60 Resp 20 20 20 B/P (MAP) 138/65 (89) 138/65 (89) 126/66 (86) Pulse Ox 98 98 98 O2 Delivery Room Air Room Air Room Air Room Air 11/12/16 11/12/16 11/12/16 11/12/16 19:05 20:10 21:39 22:48 Temp 98.1 98.1 98.1 98.1 Pulse 62 62 56 Resp 18 18 B/P (MAP) 135/53 (80) 135/53 152/60 (90) Pulse Ox 96 95 O2 Delivery Room Air Room Air Room Air 11/13/16 11/13/16 11/13/16 11/13/16 03:03 07:10 07:45 08:33 Temp 97.9 97.7 97.9 97.7 Pulse 55 60 58 Resp 18 18 B/P (MAP) 138/53 (81) 125/58 (80) 125/60 Pulse Ox 95 96 O2 Delivery Room Air Room Air Room Air 11/13/16 08:34 Pulse 60 B/P (MAP) 125/58 Intake and Output 11/12/16 11/12/16 11/13/16 15:00 23:00 07:00 Intake Total 1000 ml 473 ml 2400 ml Balance 1000 ml 473 ml 2400 ml EH FLETCHER III DO Nov 13, 2016 11:10
[2016-11-13 11:11] VITALS: BP 131/80
--- NOTE | 2016-11-13 11:32 | PDOC3 ---
Discharge Summary Visit Information Date of Discharge: Nov 13, 2016 Final Diagnosis Problems Medical Problems: (1) Central retinal artery occlusion of left eye Status: Acute Brief Hospital Course Allergies Allergies Coded Allergies Type Severity Reaction Last Updated Verified No Known Drug Allergies 11/12/16 No Vital Signs Vital Signs Date Time Temp Pulse Resp B/P (MAP) Pulse Ox O2 Delivery O2 Flow Rate FiO2 11/13/16 11:11 97.5 55 19 131/80 (97) 96 Room Air 97.5 Lab Results Laboratory Tests Test 11/12/16 07:35 11/12/16 11:17 11/12/16 16:39 11/12/16 20:47 White Blood Count 6.1 x10^3/uL (4.0-11.0) Red Blood Count 4.81 x10^6/uL (4.30-5.70) Hemoglobin 15.2 g/dL (13.0-17.5) Hematocrit 43.0 % (39.0-53.0) Mean Corpuscular Volume 89 fL (79-100) Mean Corpuscular Hemoglobin 32 pg (25-35) Mean Corpuscular Hemoglobin Concent 35 g/dL (31-37) Red Cell Distribution Width 15.0 % (11.5-14.5) Platelet Count 132 x10^3/uL (140-400) Neutrophils (%) (Auto) 56 % (31-73) Lymphocytes (%) (Auto) 31 % (24-48) Monocytes (%) (Auto) 9 % (0-9) Eosinophils (%) (Auto) 4 % (0-3) Basophils (%) (Auto) 1 % (0-3) Neutrophils # (Auto) 3.4 x10^3uL (1.8-7.7) Lymphocytes # (Auto) 1.9 x10^3/uL (1.0-4.8) Monocytes # (Auto) 0.5 x10^3/uL (0.0-1.1) Eosinophils # (Auto) 0.2 x10^3/uL (0.0-0.7) Basophils # (Auto) 0.0 x10^3/uL (0.0-0.2) Erythrocyte Sedimentation Rate 22 (0-15) Sodium Level 141 mmol/L (136-145) Potassium Level 4.3 mmol/L (3.5-5.1) Chloride Level 104 mmol/L (98-107) Carbon Dioxide Level 31 mmol/L (21-32) Anion Gap 6 (6-14) Blood Urea Nitrogen 19 mg/dL (8-26) Creatinine 1.0 mg/dL (0.7-1.3) Estimated GFR (Cockcroft-Gault) 76.2 Glucose Level 107 mg/dL (70-99) Calcium Level 9.1 mg/dL (8.5-10.1) Total Bilirubin 0.4 mg/dL (0.2-1.0) Direct Bilirubin 0.1 mg/dL (0.0-0.2) Aspartate Amino Transf (AST/SGOT) 27 U/L (15-37) Alanine Aminotransferase (ALT/SGPT) 28 U/L (16-63) Alkaline Phosphatase 87 U/L (46-116) C-Reactive Protein, Quantitative 7.4 mg/L (0-3.3) Total Protein 7.3 g/dL (6.4-8.2) Albumin 3.5 g/dL (3.4-5.0) Glucose (Fingerstick) 115 mg/dL (70-99) 115 mg/dL (70-99) 68 mg/dL (70-99) Test 11/12/16 21:34 11/13/16 07:03 Glucose (Fingerstick) 89 mg/dL (70-99) 171 mg/dL (70-99) Laboratory Tests Test 11/12/16 16:39 11/12/16 20:47 11/12/16 21:34 11/13/16 07:03 Glucose (Fingerstick) 115 mg/dL (70-99) 68 mg/dL (70-99) 89 mg/dL (70-99) 171 mg/dL (70-99) Brief Hospital Course Mr. Brooks is a 61 old [sex] who presented with [L eye blindness. Seen by Dr Miguel ferrari. Dx with CRAO Pt seen and examined this am VSS Echo neg Carotids Neg Plan is dc with optho fu next week ] Total time 32 minutes Discharge Information Scheduled Aspirin (Aspirin), 1 TAB PO DAILY, (Reported) Glipizide (Glipizide), 1 TAB PO BID, (Reported) Hydrochlorothiazide (Hydrochlorothiazide Tablet ), 25 MG PO DAILY, (Reported) Insulin Aspart (Novolog), 12 UNIT SQ TID, (Reported) Insulin Detemir (Levemir Flextouch), 80 UNIT SQ HS, (Reported) Metoprolol Tartrate (Metoprolol Tartrate), 1 TAB PO BID, (Reported) [place]-3 Fatty Acids/Fish Oil (Fish Oil 1,000 Mg Capsule), 3 EACH PO DAILY, ( Reported) Pioglitazone Hcl/Metformin Hcl (Actoplus Met 15 Mg-850 Mg Tab), 1 TAB PO BID, ( Reported) Ramipril (Ramipril), 10 MG PO BID, (Reported) Rosuvastatin Calcium (Crestor), 10 MG PO HS, (Reported) EH FLETCHER III DO Nov 13, 2016 11:32
[2016-11-13] MEDS ORDERED: TIMO5SOL4 OS (11:37)
== END 2016-11-13 12:30 | disposition home or self-care (01) | DRG 123 ==
LOC: ER 07:12 → 4 NORTH 10:35
PROVIDERS: ADMIT Internal Medicine; ATTEND Internal Medicine
DX: H34.12 Central retinal artery occlusion, left eye (principal); Z68.41 Body mass index [BMI] 40.0-44.9, adult; E11.9 Type 2 diabetes mellitus without complications; E66.9 Obesity, unspecified; H54.42 Blindness, left eye, normal vision right eye; I44.0 Atrioventricular block, first degree; E78.00 Pure hypercholesterolemia, unspecified; E78.5 Hyperlipidemia, unspecified; H40.9 Unspecified glaucoma; I10 Essential (primary) hypertension; I25.10 Atherosclerotic heart disease of native coronary artery without angina pectoris; I25.2 Old myocardial infarction; Z82.49 Family history of ischemic heart disease and other diseases of the circulatory system; Z87.891 Personal history of nicotine dependence; Z95.5 Presence of coronary angioplasty implant and graft; Z79.82 Long term (current) use of aspirin; Z79.4 Long term (current) use of insulin; Z79.899 Other long term (current) drug therapy; Z79.1 Long term (current) use of non-steroidal anti-inflammatories (NSAID)
CPT/HCPCS: 36415; 70450; 80048; 80076; 82962; 85027; 85651; 86140; 93005; 93880; 96360; 96361; A6539; C8929; J1815; J7030; 99291-25